=== PATIENT | female | born 1950 ===

== ENCOUNTER → 2020-01-17 | Outpatient (CLI) | payer BC, OTHER ==
--- NOTE | 2020-01-18 08:02 | RADIOLOGY REPORT (SQ) ---
EXAM DESCRIPTION: NM 3 PHASE BONE SCAN IMAGES COMPLETED DATE/TIME: 01/17/2020 1:40 pm REASON FOR STUDY: M84.371A STRESS FRACTURE, RIGHT ANKLE, INITIAL ENCOUNTER FOR FRACTURE M84.371A ST RESS FRACTURE, RIGHT ANKLE, INITIAL ENCOUNTER FOR COMPARISON: Conventional radiographs. RADIONUCLIDE AND DOSE: 21.3 millicuries Tc99m MDP. The route of agent administration: Intravenous. ADDITIONAL DRUGS AND DOSES: None. TECHNIQUE: Following injection of the radiopharmaceutical, serial blood flow images acquired. Equil ibrium blood pool images then acquired. Routine delayed images at 3 hour acquired of the areas of cl inical concern with additional focused images as needed. AREA OF INTEREST: Right ankle LIMITATIONS: None. FINDINGS: VASCULAR FLOW IMAGES: Subtle asymmetric increased flow to the right medial ankle and calca neus. BLOOD POOL IMAGES: Subtle asymmetric increased activity along the medial aspect of the right foot. BONES: Increased activity in the medial malleolus region and calcaneus. KIDNEYS: Not imaged. OTHER: No other significant finding. IMPRESSION: Increased activity on all 3 phases consistent with clinical history of stress fracture. There is increased activity in the region of the medial malleolus and calcaneus. COMMENT: Quality measure 147: Current bone scan is compared with any available plain radiographs, p rior bone scans, and CT/MRI. TECHNICAL DOCUMENTATION: JOB ID: [id number] 2010 [employer]- All Rights Reserved Reading location - IP/workstation name: [email or web address]
== END ==
LOC: RAD 08:39
PROVIDERS: ATTEND Family Medicine
DX: M84.371A Stress fracture, right ankle, initial encounter for fracture (principal)
CPT/HCPCS: 78315; A9561; Q9969